=== PATIENT | male | born 2000 | race Caucasian/White ===

== ENCOUNTER 2023-09-08 15:37 | Observation (INO) | payer OTHER, SELFPAY ==
--- NOTE | ~2023-09-08 | CT_ITS ---
EXAMINATION: CT abdomen pelvis wo con DATE: 09/08/2023 16:11 INDICATION: Left flank pain, radiating to left lower quadrant. Nausea and vomiting. History kidney st ones. TECHNIQUE: Computed tomography (CT) of the abdomen and pelvis was performed without intravenous contr ast. Automated exposure control and iterative reconstruction technique were employed. Exam dose: 206 .63 mGy-cm total exam DLP. COMPARISON: None. FINDINGS: There is a calcified lingular pulmonary granuloma consistent with old granulomatous disease . The lung bases are clear of infiltrate or consolidation. Normal heart size. No pericardial or pleur al effusion. The liver, gallbladder, bile ducts, spleen, pancreas, pancreatic duct and adrenal glands are unremark able. Approximately 4.9 x 6.5 x 7.5 mm calculus of proximal left ureter with prominent left hydronephrosis and pelviectasis and hydronephrosis proximal to this calculus at L4-5 level. No other urinary tract calculus. The urinary bladder is unremarkable. Normal caliber of the abdominal aorta. No intraperitoneal or retroperitoneal or pelvic mass lesion or adenopathy or ascites. No bowel obstruction or intraperitoneal free air. No evidence of appendicitis. Included skeletal structures are unremarkable. IMPRESSION: 4. 9 x 6.5 x 7.5 mm left renal calculus at L4-5 level with proximal left hydroureteronep hrosis Reviewed, dictated and finalized at [facility]. Reviewed, dictated and finalized at [facility]. IMPRESSION: 4. 9 x 6.5 x 7.5 mm left renal calculus at L4-5 level with proxima l left hydroureteronephrosis
--- NOTE | ~2023-09-08 | XR_ITS ---
EXAMINATION: XR stent kub - surgery DATE: 09/09/2023 14:19 INDICATION: Left internal ureteral stent placement TECHNIQUE: Fluoroscopic images from a left internal ureteral stent placement are submitted for review . 38 seconds of fluoroscopy time. FINDINGS: There is a left double-J internal ureteral stent projecting in expected position, with proximal [place] loop at the level of the renal pelvis and distal loop in the pelvis within the bladder lumen. IMPRESSION: 1. Left internal ureteral stent placement. Please refer to real-time procedural findings for detail s. Reviewed, dictated and finalized at [facility]. IMPRESSION: 1. Left internal ureteral stent placement. Please refer to real-time procedur al findings for details.
[2023-09-08 15:37] VITALS: BP 119/80; PULSE 85; RESP 16; TEMP 36.6; O2SAT 99
[2023-09-08 16:39] LABS: Basophils Percent Auto 0.3 % (0.2-1.2); Eosinophils Percent Auto 0.1 % (0-4.4); Hematocrit 43.2 % (42.0-52.0); Hemoglobin 14.3 g/dL (14.0-18.0); Immature Granulocyte Absolute 0.03 K/mm3 (0.00-0.031); Immature Granulocyte Percent A 0.2 % (0-0.5); Lymphocytes Absolute Auto 1.63 K/mm3 (0.9-3.2); Lymphocytes Percent Auto 13.3 % (18.3-44.2); Mean Corpuscular HGB Conc 33.1 g/dl (32-36); Mean Corpuscular Hemoglobin 30.4 pg (26-34); Mean Corpuscular Volume 91.7 fl (80-100); Mean Platelet Volume 9.3 fl (7.4-10.4); Monocytes Absolute Auto 0.9 K/mm3 (0.1-0.6); Monocytes Percent Auto 7.3 % (2.6-8.5); Neutrophils Absolute Auto 9.7 K/mm3 (1.3-6.7); Neutrophils Percent Auto 78.8 % (45.5-73.1); Platelet Count Result 260 k/mm3 (150-375); Red Blood Count 4.71 M/mm3 (4.6-6.20); Red Cell Distribution Width 13.1 % (11.5-14.5); White Blood Count 12.3 K/mm3 (4.5-10.0)
[2023-09-08 16:50] LABS: Alanine Aminotransferase 18 U/L (6-50); Albumin Level 4.8 g/dL (3.5-5.1); Alkaline Phosphatase 74 U/L (38-126); Anion Gap 10 mmol/L (8-16); Aspartate Amino Transferase 27 U/L (17-59); Bilirubin,Total 0.7 mg/dL (0.2-1.3); Blood Urea Nitrogen 16 mg/dL (9-20); Calcium 9.6 mg/dL (8.4-10.2); Carbon Dioxide 24 mmol/L (22-30); Chloride 105 mmol/L (98-107); Estimated CRCL calculation 67 ml/min; Estimated Glomerular Filt Rate > 60; Glucose 98 mg/dL (65-110); Potassium 3.4 mmol/L (3.4-5.0); Sodium 139 mmol/L (137-145)
[2023-09-08 17:36] VITALS: BP 112/70; PULSE 84; RESP 20; O2SAT 100
[2023-09-08] MEDS: ONDANSETRON INJ 4 MG/2 ML VIAL IV PUSH ×2 (17:36→21:10)
[2023-09-08] MEDS: HYDROmorphone HCL INJ (*CRX) 1 MG/ML SYR IV PUSH ×3 (17:36→21:10)
--- NOTE | 2023-09-08 17:43 | ED.ABDPAIN ---
HPI - Abdominal Pain General Chief Complaint: Abdominal Pain Stated Complaint: kidney stone Time Seen by Provider: 09/08/23 16:47 History of Present Illness HPI narrative: 23-year-old male history of kidney stones with no urologist presenting to the emergency department for evaluation of left flank pain. Patient reports pain has been worsening. Patient does have a prior history of kidney stones but states he is never needed procedure to have that removed. Related Data Home Medications Medication Instructions Recorded Confirmed escitalopram oxalate 20 mg tablet 20 mg PO QHS 09/08/23 09/08/23 Allergies Allergy/AdvReac Type Severity Reaction Status Date / Time No Known Allergies Allergy Verified 09/08/23 17:35 Review of Systems Review of Systems: All systems reviewed & are unremarkable except as noted in HPI and below PMFSH Family History Family History (Updated 09/08/23 @ 21:33 by Yolanda Monteiro RN) Father Skin cancer Other Brain cancer Social History Social History Smoking status: Current every day smoker Tobacco type: e-cigarettes/vaping Alcohol intake: never Substance use: never Substance use type: does not use Lack of Transportation: No Lack of Food: Never True Current Housing: I Have Housing Concerned About Future Housing: No Difficulty Paying Gas/Electric Bills: No Difficulty Paying for Meds: No Currently Unemployed: No Education: High School Diploma/GED Difficulty w/ Childcare or Family Care: No Spiritual care concerns: No Exam Narrative: APPEARANCE: Uncomfortable due to flank pain HEAD: normocephalic, atraumatic. EYES: PERRLA/EOMI, conjunctivae clear. NOSE: Normal no drainage EARS:TMS clear with good light reflex. THROAT: Pharynx clear, no exudate. NECK: Supple. No adenopathy, no masses. RESPIRATORY: Airway patent, respirations nonlabored. Clear to auscultation bilaterally, no rales, rhonchi, wheezing. CARDIOVASCULAR: Regular rate and rhythm without murmurs rubs or gallops. ABDOMINAL: Soft, nontender, nondistended, normal bowel sounds MUSCULOSKELETAL: Moves all extremities. Strength/ROM intact, No edema, No calf tenderness. NEURO: Alert. Cranial nerves II through XII intact. SKIN: Warm, dry. Normal Color Course Course Emergency Course: 23-year-old male present emergency department for flank pain. CT showed a 5 x 6.5 x 7 mm kidney stone with hydronephrosis. Patient did have a minor leukocytosis of 12.3. UA showed no evidence of significant infection. Patient was started on Rocephin. Patient did require multiple doses of narcotic pain medication in the ED and patient did not feel that his pain was controlled well enough for discharge to home. Case was discussed with urology and patient was excepted to the urology service. Patient was updated on the plan for admission and anticipated procedure in the morning. Vital Signs Vital signs: Vital Signs Temperature 97.8 F 09/08/23 15:37 Pulse Rate 85 09/08/23 15:37 Respiratory Rate 16 09/08/23 15:37 Blood Pressure 119/80 09/08/23 15:37 Pulse Oximetry 99 09/08/23 15:37 Temperature 97.7 F 09/08/23 21:28 Pulse Rate 78 09/08/23 21:28 Respiratory Rate 16 09/08/23 21:28 Blood Pressure 129/79 09/08/23 21:28 Pulse Oximetry 100 09/08/23 21:28 MDM - Abdominal Pain Lab Data 09/08/23 16:33 09/08/23 16:33 Labs: Lab Results 09/08/23 09/08/23 Range/Units 16:33 18:46 WBC 12.3 H (4.5-10.0) K/mm3 RBC 4.71 (4.6-6.20) M/mm3 Hgb 14.3 (14.0-18.0) g/dL Hct 43.2 (42.0-52.0) % MCV 91.7 (80-100) fl MCH 30.4 (26-34) pg MCHC 33.1 (32-36) g/dl RDW 13.1 (11.5-14.5) % Plt Count 260 (150-375) k/mm3 MPV 9.3 (7.4-10.4) fl Immature Gran % (Auto) 0.2 (0-0.5) % Neut % (Auto) 78.8 H (45.5-73.1) % Lymph % (Auto) 13.3 L (18.3-44.2) % [place] % (Auto) 7.3 (2.6-8.5) % Eos % (Auto) 0.1 (0-4.4)
[2023-09-08 18:56] LABS: Appearance Urine Cloudy (Clear); Bacteria Urine None Seen /hpf; Bilirubin Urine Negative (Negative); Blood Urine 3+ (Negative); Color Urine Yellow (Yellow); Glucose Urine UA Negative (Negative); Ketones Urine 2+ mg/dL (Negative); Leukocyte Esterase Ur Negative LEU/UL (Negative); Nitrate Urine Negative (Negative); Non Pathogenic Casts 0-2; Protein Urine Trace mg/dL (Negative); RBC Urine >100 /hpf (0-2); Specific Grav Ur 1.029 (1.001-1.035); Squamous Epithelial Cell Urine None seen /hpf (Few); WBC Urine 0-5 /hpf; pH Urine 6.5 (5.0-9.0)
[2023-09-08 19:13] LABS: Add Urine Microscopic? YES
[2023-09-08 21:12] VITALS: BP 126/87; PULSE 79; RESP 15; O2SAT 100
--- NOTE | 2023-09-08 21:25 | ADMGEN ---
This patient, Jose Maldonado, was admitted to Medical Room 253-01. Patient/family oriented to hospital policies and general routines including ID bracelet, bed and alarms, visiting hours, pain management, procedures, bathroom and other care routines, personal items, smoking policy, room service/diet, and visiting hours. Information on how to activate the Rapid Response Team has been discussed. Patient/Family are encouraged to report perceived risks to care and to ask questions if they do not understand what they are told or what they should do.
[2023-09-08 21:28] VITALS: BP 129/79; PULSE 78; RESP 16; TEMP 36.5; O2SAT 100
[2023-09-08 21:29] VITALS: BMI 20.1
[2023-09-08] MEDS: DEXTROSE 5%/0.45% SOD CHL 1,000 ML 100 ML IV CONT (22:36)
[2023-09-08] MEDS: KETOROLAC 30 MG/ML VIAL (*BKC) IV PUSH (22:38)
[2023-09-09] VITALS (14 sets, daily range): BP systolic 101–134; BP diastolic 60–88; PULSE 60–88; RESP 12–20; TEMP 36.4–37.3; O2SAT 98–100
[2023-09-09] MEDS: KETOROLAC 30 MG/ML VIAL (*BKC) IV PUSH ×3 (06:13→23:58)
[2023-09-09] MEDS: DEXTROSE 5%/0.45% SOD CHL 1,000 ML 125 ML IV CONT ×2 (06:37→20:02)
[2023-09-09] MEDS: HYDROmorphone HCL INJ (*CRX) 1 MG/ML SYR 0.5 MG IV PUSH ×3 (06:55→19:57)
--- NOTE | 2023-09-09 07:14 | PM.IMHP ---
H&P: HPI History of Present Illness Date/Time: 09/09/23 07:14 Chief Complaint: Left flank pain Narrative: pleasant 23-year-old male without significant urological history until the last month when he began to have intermittent left flank pain. Reportedly, CT abd/pelvis at [facility] revealed a left ureteral stone. Attempt has been made to manage as an outpatient but he presents to the ED here with increasingly severe left flank pain. Imaging demonstrates a 7-8 mm left mid ureteral calculus. He is had no fevers chills gross hematuria or significant vomiting. Review of Systems Review of Systems: All systems reviewed & are unremarkable except as noted in HPI and below PENDING SALE TO [facility] Family History Family History (Updated 09/08/23 @ 21:33 by Yolanda Monteiro RN) Father Skin cancer Other Brain cancer Social History Social History Smoking status: Current every day smoker Tobacco type: e-cigarettes/vaping Alcohol intake: never Substance use: never Substance use type: does not use Lack of Transportation: No Lack of Food: Never True Current Housing: I Have Housing Concerned About Future Housing: No Difficulty Paying Gas/Electric Bills: No Difficulty Paying for Meds: No Currently Unemployed: No Education: High School Diploma/GED Difficulty w/ Childcare or Family Care: No Spiritual care concerns: No Meds Home Medications and Allergies Home Medications Medication Instructions Recorded Confirmed Type escitalopram oxalate 20 mg tablet 20 mg PO QHS 09/08/23 09/08/23 History Allergies Allergy/AdvReac Type Severity Reaction Status Date / Time No Known Allergies Allergy Verified 09/08/23 17:35 Vital Signs Vital Signs - 24 hr 09/08/23 15:37 09/08/23 17:36 09/08/23 21:12 Temperature 97.8 F Pulse Rate 85 84 79 Respiratory Rate 16 20 15 Blood Pressure 119/80 112/70 126/87 Pulse Oximetry 99 100 100 09/08/23 21:28 09/09/23 04:05 Temperature 97.7 F 97.6 F Pulse Rate 78 60 Respiratory Rate 16 14 Blood Pressure 129/79 123/78 Pulse Oximetry 100 100 Exam Const: General: no acute distress Resp: Effort & Inspection: normal respiratory effort GI: Inspection: non-distended GI Palp: No abdominal tenderness and No Guarding due to palpation present (GI) Auscultation: normal bowel sounds H&P: Results Labs Labs: Short CBC 09/08/23 Range/Units 16:33 WBC 12.3 H (4.5-10.0) K/mm3 Hgb 14.3 (14.0-18.0) g/dL Hct 43.2 (42.0-52.0) % Plt Count 260 (150-375) k/mm3 BMP 09/08/23 16:33 Sodium 139 Potassium 3.4 Chloride 105 Carbon Dioxide 24 BUN 16 Creatinine 1.30 Glucose 98 Calcium 9.6 Liver Function 09/08/23 Range/Units 16:33 Total Bilirubin 0.7 (0.2-1.3) mg/dL AST 27 (17-59) U/L ALT 18 (6-50) U/L Alkaline Phosphatase 74 (38-126) U/L Albumin 4.8 (3.5-5.1) g/dL Urine 09/08/23 Range/Units 18:46 Urine Color Yellow (Yellow) Urine Appearance Cloudy H (Clear) Urine pH 6.5 (5.0-9.0) Ur Specific [place] 1.029 (1.001-1.035) Urine Protein Trace (Negative) mg/dL Urine Glucose (UA) Negative (Negative) mg/dL Assessment and Plan Assessment and plan (1) Calculi, ureter: Code(s): N20.1 - Calculus of ureter Status: Acute Assessment and Plan: Cystoscopy, left ureteroscopy with laser lithotripsy, stone extraction with possible retrograde pyelography and stent placement. He is aware the risks including, but not limited to, need for additional procedures, need for postoperative ureteral stent with irritation associated with it
[2023-09-09] MEDS: ONDANSETRON INJ 4 MG/2 ML VIAL IV PUSH ×4 (09:58→20:03)
[2023-09-09] MEDS: HYDROmorphone HCL INJ (*CRX) 1 MG/ML SYR IV PUSH (12:19)
[2023-09-09] MEDS: LACTATED RINGERS 1,000 ML 30 ML IV CONT ×2 (12:50→14:35)
[2023-09-09] MEDS: fentaNYL CITRATE INJ (*CRX) 100 MCG/2 ML VIAL 50 MCG IV PUSH (12:57)
--- NOTE | 2023-09-09 13:35 | WPDHPUPDATE1 ---
History and Physical Update Update Date/Time: 09/09/23 13:35 History and Physical has been reviewed, including an updated exam of the patient. There are NO changes in the patient's condition. Risks, benefits, and alternatives have been discussed and questions answered. Patient agrees to proceed with procedure.
[2023-09-09] MEDS: LIDOCAINE HCL 2% GEL UROJET 10 ML PKG MUCOUS MEM (13:51)
--- NOTE | 2023-09-09 14:14 | WPDANESEPPF ---
Anes - Initial Pre Proc Eval Procedure: Operation Date: 09/09/23 15:00 Proposed Procedures p Cystoscopy, Left Ureteroscopy, Left Retrograde Pyelogram, Left Stone Extraction, Possible Left Stent Placement, Holmium Laser Procedure - Farhat Warren MD Date/Time: 09/09/23 14:14 Surgeon: Farhat Warren MD Pre Op Diagnosis: Ureteral Calculi Patient Data Age: 23 Gender: M Height: 1.68 m Weight: 56.6 kg Last Vital Signs Temp 37.3 C 09/09/23 12:47 Pulse 82 09/09/23 12:47 Resp 20 09/09/23 12:47 BP 114/77 09/09/23 12:47 Pulse Ox 100 09/09/23 12:47 O2 Del Method Room Air 09/09/23 12:47 Allergies Allergy/AdvReac Type Severity Reaction Status Date / Time No Known Allergies Allergy Verified 09/08/23 17:35 Home Medications Medication Instructions Recorded Confirmed Type escitalopram oxalate 20 mg tablet 20 mg PO QHS 09/08/23 09/08/23 History Laboratory Tests 09/08/23 09/08/23 16:33 18:46 WBC 12.3 H K/mm3 (4.5-10.0) RBC 4.71 M/mm3 (4.6-6.20) Hgb 14.3 g/dL (14.0-18.0) Hct 43.2 % (42.0-52.0) MCV 91.7 fl (80-100) MCH 30.4 pg (26-34) MCHC 33.1 g/dl (32-36) RDW 13.1 % (11.5-14.5) Plt Count 260 k/mm3 (150-375) MPV 9.3 fl (7.4-10.4) Immature Gran % (Auto) 0.2 % (0-0.5) Neut % (Auto) 78.8 H % (45.5-73.1) Lymph % (Auto) 13.3 L % (18.3-44.2) [place] % (Auto) 7.3 % (2.6-8.5) Eos % (Auto) 0.1 % (0-4.4) Baso % (Auto) 0.3 % (0.2-1.2) Lymph # (Auto) 1.63 K/mm3 (0.9-3.2) [place] # (Auto) 0.9 H K/mm3 (0.1-0.6) Eos # (Auto) 0.0 K/mm3 (0-0.3) Baso # (Auto) 0.0 K/mm3 (0.0-0.1) Abs Immat Gran (auto) 0.03 K/mm3 (0.00-0.031) Absolute Neuts (auto) 9.7 H K/mm3 (1.3-6.7) Absolute Nucleated RBC 0.0 K/mm3 (0.0-0.012) Nucleated RBC % 0.0 % (0.0-0.2) Sodium 139 mmol/L (137-145) Potassium 3.4 mmol/L (3.4-5.0) Chloride 105 mmol/L (98-107) Carbon Dioxide 24 mmol/L (22-30) Anion Gap 10 mmol/L (8-16) BUN 16 mg/dL (9-20) Creatinine 1.30 mg/dL (0.7-1.3) Estim Creat Clear Calc 67 ml/min Estimated GFR > 60 (59 - ) Glucose 98 mg/dL (65-110) Calcium 9.6 mg/dL (8.4-10.2) Total Bilirubin 0.7 mg/dL (0.2-1.3) AST 27 U/L (17-59) ALT 18 U/L (6-50) Alkaline Phosphatase 74 U/L (38-126) Total Protein 8.0 g/dL (6.3-8.2) Albumin 4.8 g/dL (3.5-5.1) Urine Color Yellow (Yellow) Urine Appearance Cloudy H (Clear) Urine pH 6.5 (5.0-9.0) Ur Specific [place] 1.029 (1.001-1.035) Urine Protein Trace mg/dL (Negative) Urine Glucose (UA) Negative mg/dL (Negative) Urine Ketones 2+ H mg/dL (Negative) Ur Blood (Man) 3+ H (Negative) Urine Nitrate Negative (Negative) Urine Bilirubin Negative (Negative) Urine Urobilinogen 1.0 mg/dL (<2.0) Leukocyte Esterase Rfl Negative SOFIYA/UL (Negative) Urine RBC >100 H /hpf (0-2) Urine WBC 0-5 /hpf Ur Squamous Epith Cells None seen /hpf (Few) Urine Bacteria None seen /hpf Urine Casts 0-2 Patient hx anesthesia problems: none Family hx anesthesia problems: none Results Review: All pre-operative results and documents have been reviewed as part of the pre-operative evaluation. [facility] Past Medical History Medical History (Updated 09/09/23 @ 14:15 by Guero Yee DO) Renal stones Family History Family History (Updated 09/08/23 @ 21:33 by Yolanda Monteiro RN) Father Skin cancer Other Brain cancer Social History Social History Smoking status: Current every day smoker Tobacco type: e-cigarettes/vaping Alcohol intake: never Substance use: never Substance use
--- NOTE | 2023-09-09 15:09 | P.OP_ITS ---
Procedure Note - Detailed Date of Procedure 09/09/23 Pre-op Diagnosis Left Ureteral Calculi Post-op Diagnosis Same Procedure Performed Cystoscopy, left ureteroscopy with laser lithotripsy and stone extraction, left ureteral stent placement Surgeon Farhat Warren MD Anesthesia General Description of Procedure patient brought to the operative suite where he is prepped and draped in a routine sterile fashion while in a dorsal lithotomy position of the uneventful induction of a general LMA anesthetic. Cystoscopy was undertaken with the 19 [place] rigid cystoscope. He is no urethral strictures and no prostatic hyperplasia. His bladder is endoscopically normal. A 0.035 in glidewire was advanced into his left renal pelvis. I can identify his 7-8 mm left mid ureteral stone on fluoroscopy. Distal ureter was dilated with an 8 [place] 10 [place] dilator and a 11 13 [place] ureteral access sheath is placed with ease. Using a 7.5 [place] flexible ureteral scope I identified the stone in fractured it /dusted it with a 272 micron José Miguel laser fiber. All fragments were removed. I placed a 4.8 [place] variable length stent. The patient tolerated the procedure quite nicely. Urine Output 700 Drains Yes Packing No Pathology Yes Condition Stable
[2023-09-09] MEDS: fentaNYL CITRATE INJ (*CRX) 100 MCG/2 ML VIAL 25 MCG IV PUSH ×4 (15:19→15:36)
[2023-09-09] MEDS: HYDROcodone/acetaminophen (*CRX) 10-325 MG TABLET 1 TAB PO (17:17)
[2023-09-09] MEDS: HYDROcodone/acetaminophen (*CRX) 5-325 MG TABLET 1 TAB PO (21:16)
[2023-09-10 03:45] VITALS: BP 100/57; PULSE 66; RESP 16; TEMP 36.6; O2SAT 100
[2023-09-10] MEDS: DEXTROSE 5%/0.45% SOD CHL 1,000 ML 125 ML IV CONT (04:50)
[2023-09-10 08:00] VITALS: O2SAT 100
[2023-09-10] MEDS: HYDROcodone/acetaminophen (*CRX) 5-325 MG TABLET 1 TAB PO (08:47)
--- NOTE | 2023-09-10 10:48 | PC.NURSE ---
On 09/10/23, the student, [Kishore Nguyen], provided care and completed [facility] documentation on this patient. I have reviewed the student's documentation and agree with the findings.
--- NOTE | 2023-09-10 12:06 | P.PNUR_ITS ---
Progress Note: A&P Assessment and Plan (1) Calculi, ureter: Code(s): N20.1 - Calculus of ureter Status: Acute Assessment and Plan: * Discharge today with follow-up next week for stent removed Subjective Subjective Date/Time Seen: 09/10/23 12:06 Interval history: Nausea overnight, better today Review of Systems Cardiovascular: Cardiovascular: Denies chest pain, Denies lightheadedness, Denies palpitations and Denies dyspnea Respiratory: Respiratory: Denies dyspnea Gastrointestinal: Gastrointestinal: Denies diarrhea, Denies nausea and Denies vomiting Genitourinary: Genitourinary: Denies hematuria and Denies dysuria Endocrine: Endocrine: Denies palpitations Exam Const: General: no acute distress Resp: Effort & Inspection: normal respiratory effort GI: Inspection: non-distended GI Palp: No abdominal tenderness and No Guarding due to palpation present (GI) Auscultation: normal bowel sounds Objective Data Vital Signs Vital Signs: Vital Signs - 24 hr 09/09/23 12:47 09/09/23 14:35 09/09/23 14:50 Temperature 99.2 F 97.9 F Pulse Rate 82 70 75 Respiratory Rate 20 12 13 Blood Pressure 114/77 109/65 101/60 Pulse Oximetry 100 100 100 Oxygen Delivery Room Air Simple Face Mask Simple Face Mask Oxygen Flow Rate 8 8 09/09/23 15:00 09/09/23 15:15 09/09/23 15:30 Temperature Pulse Rate 68 88 73 Respiratory Rate 14 14 14 Blood Pressure 106/61 116/88 134/84 Pulse Oximetry 100 100 100 Oxygen Delivery Room Air Room Air Room Air Oxygen Flow Rate 09/09/23 15:45 09/09/23 16:15 09/09/23 16:31 Temperature 98.9 F 98.3 F 98.2 F Pulse Rate 86 75 79 Respiratory Rate 16 16 17 Blood Pressure 123/70 114/68 114/64 Pulse Oximetry 100 99 98 Oxygen Delivery Room Air Oxygen Flow Rate 09/09/23 17:00 09/09/23 18:00 09/09/23 20:16 Temperature 98.1 F 97.8 F 97.6 F Pulse Rate 77 84 63 Respiratory Rate 16 16 18 Blood Pressure 113/71 125/72 116/68 Pulse Oximetry 100 100 100 Oxygen Delivery Oxygen Flow Rate 09/09/23 20:00 09/10/23 03:45 09/10/23 08:00 Temperature 97.9 F Pulse Rate 66 Respiratory Rate 16 Blood Pressure 100/57 L Pulse Oximetry 100 100 Oxygen Delivery Room Air Room Air Oxygen Flow Rate Intake/Output Intake/Output: Intake & Output 09/07/23 09/08/23 09/09/23 09/10/23 23:59 23:59 23:59 23:59 Intake Total 3110 1844 Output Total 2000 1300 Balance 1110 544 Meds/Results Radiology Results: ITS Impressions Abdomen/Pelvis CT 09/08/23 16:13 IMPRESSION: 4. 9 x 6.5 x 7.5 mm left renal calculus at L4-5 level with proximal left hydroureteronephrosis Ureter Stent X-Ray 09/09/23 14:28 IMPRESSION: 1. Left internal ureteral stent placement. Please refer to real-time procedural findings for details.
--- NOTE | 2023-09-14 13:41 | P.DS_ITS ---
DS: Admitting Diagnosis Discharge Date 09/10/23 Admitting Diagnosis Ureteral calculus DS: Discharge Diagnosis Discharge Diagnosis (1) Calculi, ureter: Code(s): N20.1 - Calculus of ureter Status: Acute DS: Summary Hospital Course Hospital Course: Admitted with a painful obstructing ureteral stone. He underwent endoscopic extraction. That evening he had ongoing nausea with vomiting precipitating another overnight admission. The following morning he was comfortable, tolerating a diet. He had been afebrile throughout. Time Spent with Patient Time attestation: Total time spent providing and/or coordinating discharge services: Exam Const: General: no acute distress Resp: Effort & Inspection: normal respiratory effort GI: Inspection: non-distended GI Palp: No abdominal tenderness and No Guarding due to palpation present (GI) Auscultation: normal bowel sounds DS: Data Data Completed and Pending Completed studies during hospitalization: Pending at discharge 09/09/23 14:15 Surgical [PTH] Routine Discharge Plan Discharge Attending physician on discharge: Farhat Warren Consulting providers: Fernando Lutz; Brannon Mckeon; Guero Yee; Derek Menard Discharging Clinician: Farhat Warren Patient Disposition: Home, Self-Care Activity: other - see discharge instructions Diet: other - see discharge instructions Wound Care Instructions: other - see discharge instructions Discharge Instructions: 1) Activity: no driving or important decisions x24 hours. 2) Diet: resume your normal, pre-admission diet. 3) Follow-up: 7-14 days for stent removal / call for appointment ([phone]) -> very important that he return for stent removal. 4) Stay off work until Wednesday09/13/2023 Patient Instructions: Antibiotic Form Stand Alone Forms: General Discharge Information, Work/School Release IP Follow-up/Referrals: Farhat Warren MD [Physician] - Discharge Medications: New hydrocodone-acetaminophen 5-325 mg tablet 1 - 2 tablet PO Q6H PRN (Reason: pain) Qty: 20 0RF Continued escitalopram oxalate 20 mg tablet 20 mg PO QHS Date of admission: 09/08/23 20:39 Primary Care Provider: PHYSICIAN,BANK REPRESENTATIVE Admitting Provider: Fahrat Warren Attending physician on admission: Farhat Warren Condition: Stable
== END 2023-09-10 10:49 | disposition home or self-care (01) ==
LOC: ANHED 17:20 → ANH2MED 21:06
PROVIDERS: Nurse Practitioner Family; Admitting Provider Urology; Emergency Provider Emergency Medicine; Visit Provider Urology
PROC: (CPT 52352; principal; 2023-09-09 15:00)
DX: N13.2 Hydronephrosis with renal and ureteral calculous obstruction (principal); D72.829 Elevated white blood cell count, unspecified; F17.290 Nicotine dependence, other tobacco product, uncomplicated; Z79.899 Other long term (current) drug therapy
CPT/HCPCS: 52356; 36415; 74176; 80053; 81001; 82365; 85025; 88300; 96374; 96375; 96376; 99285; A9270; C1769; C1894; C2617; G0378; J0330; J0696; J1100; J1170; J1885; J2250; J2405; J2704; J3010; J7120